=== PATIENT | male | born 1950 | race Caucasian/White ===

== ENCOUNTER 2024-11-29 10:54 | Day surgery (SDC) | payer MEDICARE, OTHER, SELFPAY ==
[2024-11-29] VITALS (12 sets, daily range): BP systolic 130–157; BP diastolic 74–90; PULSE 51–70; RESP 15–22; TEMP 36.2–36.7; O2SAT 94–97; BMI 22.6
[2024-11-29] MEDS: LACTATED RINGERS 1000 ML 1,000 ML 100 ML IV ×3 (11:10→14:49)
[2024-11-29] MEDS: SODIUM CHLORIDE 0.9 % (FLUSH) 10 ML SYRINGE IVF (11:39)
--- NOTE | 2024-11-29 13:35 | W.PM.H&PU ---
History & Physical Update History & Physical Update H&P Reviewed and patient assessed: No changes noted
[2024-11-29] MEDS: PIPERACILLIN/TAZOBACTAM 3.375 GM INJ IVPB (13:45)
[2024-11-29] MEDS: BUPIVACAINE 0.25% 30 ML INJECTION (14:45)
--- NOTE | 2024-11-29 14:57 | P.GSOP_ITS ---
Operative Note Date of procedure: 11/29/24 Pre-op diagnosis: Appendiceal polyp Post-op diagnosis: Same Type of Procedure: Laparoscopic appendectomy with partial cecectomy Indications: Patient is a 74-year-old male who had a polyp identified at the appendiceal base during his screening colonoscopy. This was unable to be removed during the endoscopy procedure so surgery was recommended. Risks and benefits of operative intervention were discussed at length with the patient. Risks included but was not limited to: Bleeding, infection, risk of damage to surrounding structures, possible need for additional procedures, possible need to convert to an open operation and postoperative complications such as pneumonia, pulmonary emboli or CA. All questions and concerns were addressed with the patient agreeing to proceed. Procedure Description: After discussing the risks and benefits of the procedure, the patient signed informed consent.? The operative site was marked and the patient was brought to the operating room and placed on the operating table in supine position.? Care was taken to pad the patient's pressure points.?? The patient was then intubated by anesthesia.?? The operative site was then prepped and draped in the usual sterile fashion.? A time-out was then performed. Entrance to the abdomen was obtained via a 5 mm optical trocar in the left upper quadrant. The abdomen was insufflated and briefly surveyed for any signs of injury. There were none. A 12 mm port was placed lateral to the umbilicus as well as a 5 mm port in the left lower quadrant under direct vision. The patient was then placed in Trendelenburg position with the right side up. The small bowel was gently moved out of the way and the appendix was in view. The right colon had several adhesions to the anterior abdominal wall. These were carefully taken down with hook cautery. The appendix was identified in the pelvis. There were adhesions within the pelvis that were also carefully dissected free. Using the LigaSure device the mesentery of the appendix was transected. The appendiceal artery was identified and several 5 mm clips placed on the stay side to ensure hemostasis. The lateral attachments to the cecum were dissected free with the LigaSure device. A 60 mm purple load stapler was then used to transect the appendix, as well as a small cuff of cecum. Prior to transection, the terminal ileum was identified and care was taken not to impinge into its insertion in the cecum. The specimen was placed into an Endo-Catch bag and removed from the abdomen. It was examined on the back table. No large polyp was identified. The appendiceal base and cuff of cecum had normal appea ring mucosa. The specimen was sent to pathology. The staple lines were inspected for bleeding. Several 5 mm clips were placed on areas where there was oozing identified, no arterial bleeding was seen. Hemostasis was excellent at the end of the case. All ports were removed under direct visualization. The 12 mm port site fascia was closed with 0 Vicryl. The skin was then closed with absorbable subcuticular suture. Sterile dressings were then applied. Instrument sponge and needle counts were correct at the end of the case. The patient was then woken and transported to the PACU in stable condition. Findings: Appendectomy with removal of cuff of cecum. Mucosa at margins were normal in appearance. Anesthesia: GETA Surgeon: Micheline Hernandez MD Estimated blood loss (mL): 5 Specimen: Appendix Condition: stable Disposition: PACU
--- NOTE | 2024-11-29 15:03 | P.ANES_ITS ---
Anesthesia Charges Start Date/Time Anesthesia Start Date: 11/29/24 Anesthesia Start Time: 13:33 Stop Date/Time Anesthesia Stop Date: 11/29/24 Anesthesia Stop Time: 15:06 Coding CPT Codes CPT Codes: ANESTH SURG LOWER ABDOMEN - 02320 ([id number]) P1 - NORMAL HEALTHY PATIENT, QK - ROAD MENDER 2-4 CNCRNT ANES PROC, QX - WATERPROOFER SVRodney W/ MED DIRECTION
--- NOTE | 2024-11-29 15:03 | W.ANESCHARGE ---
Anesthesia Charges Start Date/Time Anesthesia Start Date: 11/29/24 Anesthesia Start Time: 13:33 Stop Date/Time Anesthesia Stop Date: 11/29/24 Anesthesia Stop Time: 15:06 Coding CPT Codes CPT Codes: ANESTH SURG LOWER ABDOMEN - 42542 ([id number]) P1 - NORMAL HEALTHY PATIENT, QK - CORPORATE DIRECTOR OF PHARMACY 2-4 CNCRNT ANES PROC, QX - DAIRY WORKER SVRodney W/ MED DIRECTION
--- NOTE | 2024-11-29 15:28 | W.ANESCHARGE ---
Anesthesia Charges Start Date/Time Anesthesia Start Date: 11/29/24 Anesthesia Start Time: 13:33 Stop Date/Time Anesthesia Stop Date: 11/29/24 Anesthesia Stop Time: 15:06 Summary Extremes of Age - Over 70 or under 1: MDA Coding CPT Codes CPT Codes: ANESTH SURG LOWER ABDOMEN - 64468 ([id number]) QK - FOOD SANITARIAN 2-4 CNCRNT ANES PROC, QX - SPRING UPHOLSTERER SVC W/ MD MED DIRECTION, P1 - NORMAL HEALTHY PATIENT Additional Codes: Summary - Extremes of Age - Over 70 or under 1: MDA ([id number])
--- NOTE | 2024-11-29 15:36 | SUR.PHASEI ---
patient met discharge criteria per anesthesia
== END 2024-11-29 17:14 | disposition home or self-care (01) ==
PROVIDERS: PCP Family Medicine; Visit Provider Surgery
PROC: 0DTJ4ZZ Resection of Appendix, Percutaneous Endoscopic Approach (ICD-10-PCS; CPT 44970; principal; 2024-11-29 12:30)
DX: D12.1 Benign neoplasm of appendix (principal)
CPT/HCPCS: 44970; 44238; 00840; 88304; 99100; J0330; J0665; J1100; J1630; J2405; J2543; J2704; J3010; J3490; J7120